=== PATIENT | female | born 1945 | race Two or more races ===

== ENCOUNTER 2017-10-17 16:56 | Emergency (ER) | payer MEDICARE, OTHER ==
[~2017-10-17] VITALS: Ht 160 cm; Wt 64.4 kg
[2017-10-17] MEDS ORDERED: ASPIRIN 81 MG TAB.CHEW PO ONE (17:00)
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
[2017-10-17 17:10] LABS: BASOPHILS # (AUTO) 0.1 /CMM (0.0-0.2); EOSINOPHILS % (AUTO) 0.8 % (0.0-6.0); HEMATOCRIT 38 % (33-45); LYMPHOCYTES # (AUTO) 1.9 /CMM (0.8-4.8); LYMPHOCYTES % (AUTO) 26.7 % (20.0-44.0); MEAN CORPUSCULAR HGB CONC 35 g/dl (31.0-36.0); MEAN CORPUSCULAR VOLUME 89 fL (82-100); MONOCYTES # (AUTO) 0.5 /CMM (0.1-1.30); MONOCYTES % (AUTO) 6.8 % (2.0-12.0); NEUTROPHILS # (AUTO) 4.4 /CMM (1.8-8.9); NEUTROPHILS % (AUTO) 64.7 % (43.0-81.0); PLATELET COUNT (AUTO) 251 /CMM (150-450); RDW COEFFICIENT OF VARIATION 12.4 (11.5-15.0); RED BLOOD CELL COUNT(AUTO) 4.23 MIL/uL (4.0-5.2)
[2017-10-17] MEDS ORDERED: ASPIRIN 81 MG TAB.CHEW ONE (17:13)
[2017-10-17 17:20] LABS: CALCIUM, SERUM 9.1 mg/dL (8.5-10.1); CARBON DIOXIDE 23 mmol/L (21-32); CHLORIDE 105 mmol/L (98-107); CREATININE 0.7 mg/dL (0.6-1.3); GLUCOSE 109 mg/dL (74-106); POTASSIUM 4.1 mmol/L (3.5-5.1); SODIUM SERUM 137 mmol/L (136-145); UREA NITROGEN, BLOOD 19 mg/dL (7-18)
[2017-10-17 17:23] LABS: INR 1.02 (0.85-1.15)
[2017-10-17 17:28] LABS: TROPONIN I < 0.017 ng/mL (0.00-0.056)
--- NOTE | 2017-10-17 18:28 | NUR ---
IV removed. Catheter intact and site benign. Pressure and 4x4 applied to site. No bleeding noted. Patient discharged to home in stable condition. Written and verbal after care instructions given. Patient verbalizes understanding of instruction. ambulatory with a steady gait
[2017-10-17 18:29] VITALS: BP 111/66
== END 2017-10-17 18:29 | disposition home or self-care (01) ==
LOC: ER 16:58
DX: R07.89 Other chest pain (principal); I48.91 Unspecified atrial fibrillation
CPT/HCPCS: 36415; 71045-TC; 80048-TC; 84484-TC; 85025-TC; 85730-TC; A4606; Z7610

== ENCOUNTER 2020-10-27 13:11 | Outpatient (CLI) | payer MEDICARE, OTHER | END 2020-10-27 23:59 | disposition home or self-care (01) | LOC: US 13:11 | PROVIDERS: ATTEND Internal Medicine Interventional Cardiology | DX: E04.2 Nontoxic multinodular goiter (principal) | CPT/HCPCS: 76536-TC ==

== ENCOUNTER 2020-11-12 12:11 | Outpatient (CLI) | payer MEDICARE, OTHER | END 2020-11-12 23:59 | disposition home or self-care (01) | LOC: US 12:11 | PROVIDERS: ATTEND Internal Medicine Interventional Cardiology | DX: D34 Benign neoplasm of thyroid gland (principal) | CPT/HCPCS: 10021; 36415; 85730-TC; 88173-TC; 88305-TC ==

== ENCOUNTER 2021-10-10 12:17 | Emergency (ER) | payer MEDICARE, OTHER ==
[~2021-10-10] VITALS: Ht 167.6 cm; Wt 68.5 kg
[2021-10-10] MEDS ORDERED: IBUPROFEN 600 MG TABLET ONE (12:21)
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
[2021-10-10] MEDS ORDERED: IBUPROFEN 600 MG TABLET PO ONE (12:30)
--- NOTE | 2021-10-10 13:39 | NUR ---
cxr at BS.
[2021-10-10 13:40] VITALS: BP 135/71
--- NOTE | 2021-10-10 13:53 | NUR ---
Patient discharged to home in stable condition. Written and verbal after care instructions given. Patient verbalizes understanding of instruction.
== END 2021-10-10 13:55 | disposition home or self-care (01) ==
LOC: ER 12:20
DX: S62.232A Other displaced fracture of base of first metacarpal bone, left hand, initial encounter for closed fracture (principal); S22.32XA Fracture of one rib, left side, initial encounter for closed fracture; V49.9XXA Car occupant (driver) (passenger) injured in unspecified traffic accident, initial encounter; Y92.410 Unspecified street and highway as the place of occurrence of the external cause
CPT/HCPCS: 71100-TC; 73110; 73130-TC